=== PATIENT | female | born 1990 | race Caucasian/White ===

== ENCOUNTER 2021-08-23 11:12 | Inpatient (IN) | payer BC ==
[2021-08-23] MEDS: LACTATED RINGERS 1,000 ML IV SCH ×4 (11:35→19:37)
[2021-08-23] MEDS ORDERED: CARBOPROST TROMETHAMINE 250 MCG/ML 1 ML AMP IM PRN (12:02)
[2021-08-23] MEDS ORDERED: TERBUTALINE 1 MG/ML VIAL SQ PRN (12:02)
[2021-08-23] MEDS ORDERED: LIDOCAINE 0.5% (PF) 5 MG/ML (50 ML SDV) SQ PRN (12:02)
[2021-08-23] MEDS ORDERED: METHYLERGONOVINE 0.2 MG/ML 1 ML AMP IM PRN (12:02)
[2021-08-23] MEDS ORDERED: OXYTOCIN 10 UNIT/ML 1 ML VIAL IM PRN (12:02)
[2021-08-23] MEDS ORDERED: BUTORPHANOL 1 MG/ML 1 ML VIAL IV PRN (12:04)
[2021-08-23] MEDS ORDERED: PENICILLIN G POTASSIUM 5,000,000 UNIT in DEXTROSE 5% IN WATER 100 ML IVPB STA ×2 (12:05)
--- NOTE | 2021-08-23 12:11 | P.HPOB ---
History of Present Illness H&P Date: 08/23/21 Chief Complaint: JENNIE 2.5 cm in the office this morning This is a 31-year-old female 1 para 0 EDC 08/24/2021 at 39-6/7 weeks' gestation. Patient had an ultrasound this morning in the office revealing an JENNIE of 2.5 cm, estimated weight 76 percentile or 8 lbs. 10 oz. Upon obtaining history, she is uncertain as to whether she broke her water on Sunday, as she did have a large fluid gush but no further trickling or leaking, and no uterine contractions. Fetus is been active throughout the . Past medical history is unremarkable. Past surgical history is negative. Current medications vitamins daily. ALLERGIES none known. Family history significant for autism, Celia's, pancreatic cancer. Social history patient is , her Jack is present and involved. She denies tobacco alcohol or drug use. She works for [employer] formerly [employer], [facility]. history is significant for blood type A positive, rubella status immune. VDRL testing, urine culture, gonorrhea and chlamydia cultures, hepatitis B surface antigen, HIV testing all negative. One-hour Glucola 105. Positive group B strep cultures. On exam patient is 5 foot 1 inch, 262 pounds, blood pressure 123/73. Vital signs are stable and she is afebrile. Chest is clear. Extremities reveal no edema. Cervix is 1 cm dilated, posterior, vertex, 50%, -3. Artificial amniorrhexis reveals a scant amount of clear fluid, internal scalp lead applied. There was a variable deceleration noted, however now frequent accelerations are seen, reactive NST. No uterine contractions per monitor. Impression: 38-6/7 weeks intrauterine , oligohydramnios in the office, possible ruptured membranes 3 weeks ago. Positive group B strep cultures. Large for gestational age fetus, positive group B strep cultures. Here for induction of labor. All signs currently reassuring. Plan: Penicillin G per hospital protocol. Begin oxytocin augmentation and run per hospital protocol. Close maternal and surveillance. Anticipate normal spontaneous vaginal delivery. Review of Systems Constitutional: Reports as per HPI Past Medical History Past Medical History: Thyroid Disorder Additional Past Medical History / Comment(s): gastritis History of Any Multi-Drug Resistant Organisms: None Reported Past Surgical History: No Surgical Hx Reported Past Anesthesia/Blood Transfusion Reactions: No Reported Reaction Past Psychological History: No Psychological Hx Reported Past Alcohol Use History: Occasional Past Drug Use History: None Reported - Past Family History Mother Family Medical History: No Reported History Medications and Allergies Home Medications Medication Instructions Recorded Confirmed Type Pnv No.95/Ferrous Fum/Folic AC 1 tab PO DAILY 08/23/21 08/23/21 History [ Multivitamin Tablet] Allergies Allergy/AdvReac Type Severity Reaction Status Date / Time No Known Allergies Allergy Verified 08/23/21 12:01 Exam Intake and Output 08/22/21 08/23/21 08/23/21 22:59 06:59 14:59 Other: Weight 118.841 kg See dictation under HPI proceed Assessment and Plan Assessment: 39-6/7 weeks intrauterine , severe oligohydramnios, possible ruptured membranes 3 days. Positive group B strep cultures. Maternal obesity noted. Large for gestational age fetus. Plan: Penicillin G per hospital protocol. Oxytocin per hospital protocol. Close maternal and surveillance. Anticipating normal spontaneous vaginal delivery. Analgesic options reviewed. All questions answered. Time with Patient: Less than 30
[2021-08-23] MEDS ORDERED: OXYTOCIN 30 UNITS/500 ML NS 30 UNIT in SALINE 1 500ML.BAG IV SCH (12:15)
[2021-08-23 12:35] LABS: Basophils % (A) 0 %; Eosinophils # (A) 0.1 k/uL (0-0.7); Eosinophils % (A) 0 %; HCT 38.5 % (34.0-46.0); HGB 12.3 gm/dL (11.4-16.0); Lymphocytes # (A) 2.8 k/uL (1.0-4.8); Lymphocytes % (A) 22 %; MCH 29.1 pg (25.0-35.0); MCHC 31.9 g/dL (31.0-37.0); Mean Platelet Volume 8.2; Monocytes # (A) 0.5 k/uL (0-1.0); Monocytes % (A) 4 %; Neutrophils # (A) 9.2 k/uL (1.3-7.7); Neutrophils % (A) 72 %; Platelet Count 241 k/uL (150-450); RBC 4.22 m/uL (3.80-5.40); RDW 13.3 % (11.5-15.5); WBC 12.7 k/uL (3.8-10.6)
[2021-08-23] MEDS: PENICILLIN G POTASSIUM 2,500,000 UNIT in DEXTROSE 5% IN WATER 100 ML IVPB SCH ×4 (15:38→19:41)
[2021-08-23] MEDS ORDERED: ROPIVACAINE 5MG/ML 20ML VIAL ONE (18:39)
[2021-08-23] MEDS ORDERED: fentaNYL (PF) 50 MCG/ML 5 ML AMP ONE (18:39)
[2021-08-23] MEDS ORDERED: SODIUM CHLORIDE 0.9% 100 ML BAG ONE (18:39)
[2021-08-23] MEDS ORDERED: CITRIC ACID-SODIUM CITRATE 15 ML CUP PO ONE (21:03)
[2021-08-23] MEDS ORDERED: ceFAZolin 3 GM in SODIUM CHLORIDE 0.9% 100 ML IVPB STA (21:07)
[2021-08-23] MEDS ORDERED: OXYTOCIN 30 UNITS/500 ML NS BAG IV ONE (21:30)
[2021-08-23] MEDS ORDERED: CHLOROPROCAINE 3% 30 MG/ML 20 ML VIAL ONE (21:30)
[2021-08-23] MEDS ORDERED: KETOROLAC 15 MG/ML 1 ML VIAL ONE (21:30)
[2021-08-23] MEDS ORDERED: ONDANSETRON 4 MG/2 ML VIAL ONE (21:30)
[2021-08-23] MEDS ORDERED: MORPHINE SULFATE (PF) 0.3 MG/0.3 ML SYR ONE (21:30)
[2021-08-23] MEDS ORDERED: diphenhydrAMINE 50 MG CAP PO PRN (22:21)
[2021-08-23] MEDS ORDERED: diphenhydrAMINE 25 MG CAP PO PRN (22:21)
[2021-08-23] MEDS ORDERED: ONDANSETRON 4 MG/2 ML VIAL IVP PRN (22:21)
[2021-08-23] MEDS ORDERED: METOCLOPRAMIDE 5 MG/ML 2 ML VIAL IVP PRN (22:21)
[2021-08-23] MEDS ORDERED: NALOXONE 0.4 MG/ML 1 ML VIAL IV PRN (22:21)
[2021-08-23] MEDS ORDERED: ZOLPIDEM 5 MG TAB PO PRN (22:21)
[2021-08-23] MEDS ORDERED: diphenhydrAMINE 50 MG/ML 1 ML VIAL IVP PRN ×2 (22:21)
[2021-08-23] MEDS ORDERED: SIMETHICONE 80 MG CHEWABLE PO PRN (22:21)
--- NOTE | 2021-08-23 22:21 | P.OP ---
Date of Procedure: 08/23/21 Preoperative Diagnosis: 39-6/7 weeks' gestation, arrest of dilatation and descent, oligohydramnios, maternal obesity Postoperative Diagnosis: Same, left occiput transverse position, liveborn female infant Procedure(s) Performed: Primary low transverse section Anesthesia: epidural Surgeon: Aby Faria [employer] Installer #1: Adiel Kelly Estimated Blood Loss (ml): 100 IV fluids (ml): 1,000 Urine output (ml): 200 Pathology: none sent Condition: stable Disposition: PACU Operative Findings: Liveborn female infant wedged in the left occiput transverse position. Normal- appearing tubes and ovaries, no uterine defects or anomalies. Description of Procedure: Patient is brought to the operating suite where the previously placed epidural was "topped off". She's placed in the dorsal supine position with left lateral uterine displacement. 3 g of Ancef are given. The appropriate timeout is performed to assure proper patient and procedural identification. Patiño catheter placed to direct drainage. the abdomen is prepped and draped in usual sterile fashion. The analgesia is checked and noted to be adequate. A low transverse skin incision is made in this is carried down through the subcutaneous tissue which is approximately 8-9 cm deep. Fascia is isolated, scored, extended bilaterally with curved Theodore scissors. Peritoneum is next identified and incised, there is no bowel or bladder involvement. Bladder flap is created with Metzenbaum scissors and at all times the bladder is Well from the operative field to avoid bladder and/or ureteral injury. A low transverse uterine incision is made in this is extended bluntly. The 's head is delivered in the left occiput transverse position, wedged into the pelvis. There is no nuchal cord noted. Patient is officially delivered of a liveborn female . Umbilical cord is doubly clamped and ligated, she is handed to waiting nurses for evaluation where scores of 8 and 9 at one and 5 minutes respectively are given. The placenta is delivered manually, it is inspected and noted to be intact with trivascular cord. The uterus is then externalized and massaged. Oxytocin is given. Uterus is swept clean with a sterile sponge to avoid any retained products of conception. Uterus is closed in a two-step fashion, first layer running locking, second layer imbricated for excellent hemostasis and reapproximation. Bilateral tubes and ovaries are inspected and noted to be normal. Abdomen is suctioned with suction on guard posterior to the uterus. Uterus is gently placed back into the abdominal c avity. Bilateral gutters are inspected and cleaned. Hemostasis is excellent. Peritoneum was allowed to close by secondary intention. Fascia is closed in a running stitch of 0 Vicryl with over ligation in the midline. Subcutaneous tissue is irrigated, clean and dry. It is reapproximated with 3-0 Vicryl in a running fashion. 4-0 undyed Monocryl issues for final skin closure in a subcuticular fashion. Steri-Strips and Mastisol are applied to the wound. Pressure dressing is applied. Abdominal support belt is ordered. All sponge needle and enhancement counts are correct. Patiño is noted to be draining clear urine. Patient is brought back to recovery room in excellent condition with a pulse of 80, blood pressure 110/70.
[2021-08-23] MEDS ORDERED: LACTATED RINGERS 1,000 ML IV SCH (22:30)
[2021-08-24] MEDS: ACETAMINOPHEN TAB 500 MG TAB PO SCH ×4 (02:02→21:09)
[2021-08-24] MEDS: IBUPROFEN 600 MG TAB PO SCH ×3 (04:41→16:48)
[2021-08-24 07:27] LABS: Basophils % (A) 0 %; Eosinophils % (A) 0 %; HCT 32.5 % (34.0-46.0); HGB 10.2 gm/dL (11.4-16.0); Lymphocytes # (A) 2.3 k/uL (1.0-4.8); Lymphocytes % (A) 19 %; MCH 29.2 pg (25.0-35.0); MCHC 31.4 g/dL (31.0-37.0); Mean Platelet Volume 8.1; Monocytes # (A) 0.5 k/uL (0-1.0); Monocytes % (A) 4 %; Neutrophils % (A) 75 %; Platelet Count 207 k/uL (150-450); RDW 13.3 % (11.5-15.5)
[2021-08-24] MEDS: SENNOSIDES-DOCUSATE SODIUM 1 EACH TAB PO SCH ×2 (07:55→21:09)
--- NOTE | 2021-08-24 08:53 | P.PNOBGPC ---
Subjective - Subjective Principal diagnosis: Postop day 1, primary Interval history: Patient is doing well postoperatively, she is ambulating without difficulty. Awaiting spontaneous void. Pain is controlled. Patient reports: Reports appetite normal, Reports pain well controlled, Reports ambulating normally [place]: doing well Objective - Vital Signs Latest vital signs: Vital Signs Temp Pulse Resp BP Pulse Ox 08/24/21 07:45 97.9 F 76 17 98/54 99 08/24/21 04:00 96.9 F L 72 16 110/67 08/24/21 00:20 77 16 119/70 08/23/21 23:50 64 16 113/63 08/23/21 23:20 83 16 117/57 08/23/21 23:05 76 16 89/52 08/23/21 22:50 88 16 90/53 99 08/23/21 22:35 78 16 111/52 98 08/23/21 22:20 96.9 F L 81 16 103/56 98 08/23/21 12:15 97.7 F 90 16 118/69 96 Intake and Output 08/23/21 08/24/21 08/24/21 22:59 06:59 14:59 Intake Total 200 Output Total 100 1085 Balance -100 -885 Intake: IV 200 Output: Urine 1000 Uretheral (Patiño) 1000 Estimated Blood Loss 100 Output, Quantitative 85 Blood Loss Other: Voiding Method Indwelling Catheter Indwelling Catheter - Exam Extremities: Present: normal, edema Abdomen: Present: normal appearance, soft Incision: Present: normal, dry, intact Uterus: Present: normal, firm - Labs Labs: Abnormal Lab Results - Last 24 Hours (Table) 08/23/21 08/24/21 Range/Units 11:25 06:48 WBC 12.7 H 12.0 H (3.8-10.6) k/uL RBC 3.50 L (3.80-5.40) m/uL Hgb 10.2 L (11.4-16.0) gm/dL Hct 32.5 L (34.0-46.0) % Neutrophils # 9.2 H 9.0 H (1.3-7.7) k/uL Assessment and Plan (1) Term Current Visit: Yes Status: Acute Code(s): Z34.90 - ENCNTR FOR SUPRVSN OF NORMAL , UNSP, UNSP TRIMESTER SNOMED Code(s): 52454136 (2) Oligohydramnios Current Visit: Yes Status: Acute Code(s): O41.00X0 - OLIGOHYDRAMNIOS, UNSP TRIMESTER, NOT APPLICABLE OR UNSP SNOMED Code(s): 89942472 (3) S/P section Current Visit: Yes Status: Acute Code(s): Z98.891 - HISTORY OF UTERINE SCAR FROM PREVIOUS SURGERY SNOMED Code(s): 272268972 Plan: 31-year-old 1 now para 1 status post primary for arrest of labor, oligohydramnios. Patient is doing well postoperatively will plan to continue routine postoperative care.
--- NOTE | 2021-08-24 09:25 | P.PN ---
Progress Note - Text Progress Note Date: 08/24/21 Postoperative day 1 status post section under spinal anesthesia, and i ntrathecal morphine given for postoperative analgesia, patient doing well, there is no anesthesia related complications, Patient had no headache, vital signs stable , Assessment and plan= postop day 1 status post , doing well there is no anesthesia related complication.
[2021-08-25] MEDS: IBUPROFEN 600 MG TAB PO SCH ×2 (03:18→10:29)
[2021-08-25] MEDS: ACETAMINOPHEN TAB 500 MG TAB PO SCH ×2 (06:38→13:02)
--- NOTE | 2021-08-25 08:39 | P.DS ---
Providers Date of admission: 08/23/21 11:12 Expected date of discharge: 08/25/21 Attending physician: Aby Faria Primary care physician: Stated None - Discharge Diagnosis(es) (1) Term Current Visit: Yes Status: Acute (2) Oligohydramnios Current Visit: Yes Status: Acute (3) S/P section Current Visit: Yes Status: Acute Hospital Course: This is a 31-year-old that presented to labor and delivery at 39-6/7 weeks after ultrasound in the office revealed a diagnosis of oligohydramnios. Patient had an amniotic fluid index of 2.5. Patient was sent to labor and delivery and induction of labor was begun. Patient had been receiving routine care prior to this which had been essentially uncomplicated. On bloodwork this patient has a blood type of A+, rubella status immune, hep Janey surface antigen negative, HIV negative, group beta strep cultures were positive and patient was treated 3 during labor. Patient underwent Pitocin induction of labor. Amniotomy was performed and clear fluid was obtained. Patient made slow change through labor with arrest of dilation noted. Patient was counseled on primary secondary to arrest of labor with given diagnosis of o ligohydramnios. Patient agreed and was taken back to the operating suite. C- section was performed without difficulty. A viable female was delivered at 2145, weight of 6 lbs. 9 oz., Apgars of 8 and 9 at one and 5 minutes respectively. Patient's postoperative course has been uneventful. On this postoperative day #2 she is involuting and voiding without difficulty. She is tolerating a regular diet without nausea or vomiting. She states her pain is well-controlled with oral ibuprofen/Tylenol. She would like discharge home. Patient Condition at Discharge: Good Plan - Discharge Summary New Discharge Prescriptions: No Action Pnv No.95/Ferrous Fum/Folic AC [ Multivitamin Tablet] 1 tab PO DAILY Discharge Medication List Pnv No.95/Ferrous Fum/Folic AC [ Multivitamin Tablet] 1 tab PO DAILY 08/23/21 [History] Follow up Appointment(s)/Referral(s): Megan Godoy DO [Doctor of Osteopathic Medicine] - 2 Weeks Patient Instructions/Handouts: (DC), (GEN) Discharge Disposition: HOME SELF-CARE
[2021-08-25] MEDS: SENNOSIDES-DOCUSATE SODIUM 1 EACH TAB PO SCH (10:29)
[2021-08-25 11:25] VITALS: BP 119/80; PULSE 83; RESP 20; TEMP 97.7
== END 2021-08-25 13:06 | disposition home or self-care (01) | DRG 787 ==
LOC: 4FBP 11:12
PROVIDERS: ADMIT Obstetrics & Gynecology; ATTEND Obstetrics & Gynecology
PROC: 10D00Z1 Extraction of Products of Conception, Low, Open Approach (ICD-10-PCS; principal; 2021-08-23 21:30)
DX: O41.03X0 Oligohydramnios, third trimester, not applicable or unspecified (principal); Z68.42 Body mass index [BMI] 45.0-49.9, adult; O36.63X0 Maternal care for excessive fetal growth, third trimester, not applicable or unspecified; O62.0 Primary inadequate contractions; O76 Abnormality in fetal heart rate and rhythm complicating labor and delivery; O99.214 Obesity complicating childbirth; Z37.0 Single live birth; Z3A.39 39 weeks gestation of pregnancy
CPT/HCPCS: 85025; 86850; 86900; 86901